=== PATIENT | female | born 1960 | race Two or more races ===

== ENCOUNTER 2023-06-04 14:53 | Emergency (ER) | payer OTHER ==
[~2023-06-04] VITALS: Ht 165.1 cm; Wt 102.5 kg
[2023-06-04] MEDS ORDERED: GLUMETZA1000 MG PO (15:26)
[2023-06-04] MEDS ORDERED: ZESTRIL20 MG PO (15:27)
[2023-06-04] MEDS ORDERED: ATENOLOL50 MG PO (15:27)
[2023-06-04] MEDS ORDERED: DEXILANT60 MG PO (15:28)
[2023-06-04] MEDS ORDERED: CRESTOR10 MG PO (15:28)
[2023-06-04] MEDS ORDERED: TROKENDI XR200 MG PO (15:29)
[2023-06-04] MEDS ORDERED: APLENZIN174 MG (15:29)
== END 2023-06-04 16:57 | disposition home or self-care (01) ==
LOC: ER 14:54
DX: S51.821A Laceration with foreign body of right forearm, initial encounter (principal); W45.8XXA Other foreign body or object entering through skin, initial encounter; Y93.89 Activity, other specified; Y92.018 Other place in single-family (private) house as the place of occurrence of the external cause; Z91.040 Latex allergy status; Z91.018 Allergy to other foods
CPT/HCPCS: 90471; 90714; 96372; 99284; J3490